=== PATIENT | female | born 1940 | race Caucasian/White ===

== ENCOUNTER 2023-11-24 07:49 | Emergency (ER) | payer OTHER, SELFPAY ==
[2023-11-24] VITALS (12 sets, daily range): BP systolic 126–203; BP diastolic 59–87; PULSE 58–72; RESP 18; TEMP 37.2; O2SAT 89–98; BMI 38.5
--- NOTE | 2023-11-24 08:04 | DI.RAD.S_ITS ---
PROCEDURE: XR CHEST 1V INDICATIONS: chest pain TECHNIQUE: One view of the chest was acquired. COMPARISON: [facility], , CHEST 2 VIEW, 06/07/2013, 10:07. FINDINGS: Surgical changes and devices: None. Lungs and pleura: Very minimal left basilar opacity. No pleural effusions or pneumothorax. Mediastinum: Heart is enlarged. Retrocardiac opacity is present suggestive of hiatal hernia and is unchanged. Bones and chest wall: No suspicious bony lesions. Overlying soft tissues appear unremarkable. IMPRESSION: Minimal left basilar opacity which may represent small effusion. Dictated by: Lesly Samson M.D. on 11/24/2023 at 8:45 Approved by: Lesly Samson M.D. on 11/24/2023 at 8:46
[2023-11-24 08:15] LABS: HEMOLYSIS < 15 (0-50)
[2023-11-24 08:19] LABS: Add Manual Diff / Slide Review NO; Basophils Absolute Auto 100 /uL (0-100); Basophils Percent Auto 1.2 % (0-2); Eosinophils Absolute Auto 100 /uL (0-450); Eosinophils Percent Auto 1.8 % (2-4); Hematocrit 38.9 % (36-46); Lymphocytes Absolute Auto 1800 /uL (1100-4500); Lymphocytes Percent Auto 21.5 % (25-40); Mean Corpuscular HGB Conc 33.5 % (30-36); Mean Corpuscular Hemoglobin 28.5 PG (26-34); Mean Corpuscular Volume 85.3 fL (80-100); Monocytes Absolute Auto 700 /uL (0-900); Monocytes Percent Auto 8.2 % (3-14); Neutrophils Absolute Auto 5500 /uL (1500-7000); Neutrophils Percent Auto 67.3 % (50-75); Platelet Count 265 X10^3/uL (150-400); Red Blood Cell Count 4.56 X10^6/uL (4.0-5.2); Red Cell Distribution Width 14.2 % (11.6-14.8); White Blood Cell Count 8.2 X10^3/uL (4.5-11.0)
[2023-11-24 08:22] LABS: Alanine Aminotransferase 16 IU/L (<35); Albumin 4.4 g/dL (3.5-5.0); Alkaline Phosphatase 59 U/L (38-126); Aspartate Aminotransferase 20 IU/L (14-36); BUN Creatinine Ratio 20.5 (6-22); Bilirubin Total 0.6 mg/dL (0.2-1.3); Blood Urea Nitrogen 15 mg/dL (7-17); Calcium 9.6 mg/dL (8.4-10.2); Carbon Dioxide 32 mmol/L (22-32); Chloride 99 mmol/L (98-107); Creatine Kinase 69 U/L (30-135); Estimated Glomerular Filt Rate > 60 mL/min (>60); Globulin 4.2 g/dL (1.7-4.1); Glucose 120 mg/dL (80-110); Lipase 46 U/L (23-300); Magnesium 1.9 mg/dL (1.6-2.3); Sodium 135 mmol/L (137-145); Total Protein 8.6 g/dL (6.3-8.2)
[2023-11-24 08:25] LABS: PTT Partial Thromboplastin Tim 34 SECONDS (25.1-36.5)
[2023-11-24 08:38] LABS: Troponin I < 0.012 ng/mL (0.01-0.034)
--- NOTE | 2023-11-24 09:13 | ED.GENADULT ---
HPI - General Adult General Chief complaint: Dizziness Stated complaint: kidney pain, dizziness, fever Time Seen by Provider: 11/24/23 09:09 Source: patient Mode of arrival: Family Vehicle History of Present Illness HPI narrative: 82-year-old female with history of hypertension, GERD who presents with complaint of feeling a little lightheaded starting yesterday morning. Patient states no spinning or vertigo symptoms. She has had those in the past. She states she does not feel like she is going to pass out but feels a little bit off balance. She denies headaches, she denies vision changes, she denies numbness, tingling or weakness of extremities. States she has been ambulating like she normally does. Denies any chest pain or pressure no active shortness of breath. Did not notice a little bit increased swelling in her ankles also notes she had her amlodipine increased in September. She has had some mild nausea but no vomiting, no new issues with bowel movements she does take a laxative daily. She has some chronic incontinence and noticed a little bit of flank pain and was concerned about possible kidney or urine infection. She denies any fevers but has felt chilled. Patient states she takes amlodipine, propranolol, lisinopril, hydrochlorothiazide, potassium supplement, omeprazole and [id number] allergy medication. Prior surgeries include bilateral knee surgery, big toe with pins and bladder prolapse surgery. States she has reaction to IV potassium, she states that she turned red and had swelling of her face and neck. No tobacco, alcohol or recreational drugs. She follows with a nurse practitioner on [facility]. Related Data Previous Rx's Medication Instructions Recorded cephalexin 500 mg capsule 500 mg PO BID 5 days #10 caps 11/24/23 Allergies Allergy/AdvReac Type Severity Reaction Status Date / Time potassium Allergy Redness of Verified 11/24/23 08:19 Skin Review of Systems Review of Systems ROS Unobtainable: All systems reviewed & are unremarkable except as noted in HPI and below Patient History Social History Smoking Status: Never smoker Smoking Status: Never smoker alcohol intake frequency: 0-2 drinks per day Substance Use Type: does not use Exam Narrative Exam Narrative: GEN: well nourished, well appearing female, alert and oriented x 3, patient appears to be in mild distress. HEENT: Atraumatic, pupils are equal round reactive to light, extraocular movements are intact, nares are clear, there is no conjunctival pallor. Throat is clear without any exudates, erythema, tonsillar enlargement or uvular deviation HEART: Regular rate and rhythm without murmur, clicks, rubs. pulses are equal in upper and lower extremities LUNGS:Lungs clear to auscultation, no wheezes, rales, crackles, chest moves symmetrically, patient has bilateral ankle edema. ABD:bowel sounds normal, soft, non-tender, no guarding, rebound, rigidity, no masses noted, no hepatosplenomegaly :No CVA tenderness MSCL: Non-tender, no muscle atrophy, muscles strength 5/5 upper and lower extremities, full range of motion, normal gait patient ambulated to and from the bathroom without any issue. NEURO:CN 2-12 intact, sensation normal Initial Vital Signs Initial Vital Signs: Vital Signs Pulse Oximetry 96 11/24/23 07:55 Course Orders Ordered: Discontinued Medications Aspirin (Aspirin 81 Mg Chew Tab) 324 mg PO NOW ONE Stop: 11/24/23 08:05 Last Admin: 11/24/23 08:18 Dose: Not Given Documented By: HUSSAIN Vital Signs Vital signs: Vital Signs - 8 hr 11/24/23 07:55 11/24/23 07:56 11/24/23 07:56 Temperature Pulse Rate 72 Respiratory Rate Blood Pressure 195/87 H Pulse Oximetry 96 97 Oxygen Delivery Method 11/24/23 08:00 11/24/23 08:00 11/24/23 08:00 Temperature 98.9 F Pulse Rate 71 69 Respiratory Rate 18 Blood Pressure 195/87 H 198/65 H Pulse Oximetry 97 98 Oxygen Delivery Method Room Air 11/24/23 08:30 11/24/23 08:30 11/24/23 09:00 Temperature Pulse Rate 60 Respiratory Rate Blood Pressure 166/77 H 149/67 H Pulse Oximetry 95 Oxygen Delivery Method 11/24/23 09:00 11/24/23 09:18 11/24/23 09:20 Temperature Pulse Rate 58 L 69 Respiratory Rate Blood Pressure 203/84 H Pulse Oximetry 96 89 L Oxygen Delivery Method 11/24/23 09:20 11/24/23 09:21 11/24/23 09:21 Temperature Pulse Rate 62 62 Respiratory Rate Blood Pressure 171/72 H Pulse Oximetry 98 98 Oxygen Delivery Method Medical Decision Making Lab Data 11/24/23 08:05 11/24/23 08:05 Labs: Lab Results 11/24/23 11/24/23 Range/Units 08:05 09:20 WBC 8.2 (4.5-11.0) X10^3/uL RBC 4.56 (4.0-5.2) X10^6/uL Hgb 13.0 (12.0-16.0) g/dL Hct 38.9 (36-46) % MCV 85.3 (80-100) fL MCH 28.5 (26-34) PG MCHC 33.5 (30-36) % RDW 14.2 (11.6-14.8) % Plt Count 265 (150-400) X10^3/uL Neut % (Auto) 67.3 (50-75) % Lymph % (Auto) 21.5 L (25-40) % [place] % (Auto) 8.2 (3-14) % Eos % (Auto) 1.8 L (2-4) % Baso % (Auto) 1.2 (0-2) % Neut # (Auto) 5500 (8839-9118) /uL Lymph # (Auto) 1800 (2921-4071) /uL [place] # (Auto) 700 (0-900) /uL Eos # (Auto) 100 (0-450) /uL Baso # (Auto) 100 (0-100) /uL PT 11.0 (9.4-12.5) SECONDS INR 1.0 (0.9-1.3) APTT 34 (25.1-36.5) SECONDS Sodium 135 L (137-145) mmol/L Potassium 4.0 (3.4-5.1) mmol/L Chloride 99 (98-107) mmol/L Carbon Dioxide 32 (22-32) mmol/L BUN 15 (7-17) mg/dL Creatinine 0.73 (0.52-1.04) mg/dL Estimated GFR > 60 (>60) mL/min BUN/Creatinine Ratio 20.5 (6-22) Glucose 120 H (80-110) mg/dL Calcium 9.6 (8.4-10.2) mg/dL Magnesium 1.9 (1.6-2.3) mg/dL Total Bilirubin 0.6 (0.2-1.3) mg/dL AST 20 (14-36) IU/L ALT 16 (<35) IU/L Alkaline Phosphatase 59 (38-126) U/L Total Creatine Kinase 69 (30-135) U/L Troponin I < 0.012 (0.01-0.034) ng/mL Total Protein 8.6 H (6.3-8.2) g/dL Albumin 4.4 (3.5-5.0) g/dL Globulin 4.2 H (1.7-4.1) g/dL Albumin/Globulin Ratio 1.0 (1.0-2.8) Lipase 46 (23-300) U/L Urine Color Yellow Urine Appearance Clear Urine pH 5.5 (4.5-8.0) Ur Specific [place] 1.010 (1.000-1.035) Urine Protein Negative (Negative) Urine Glucose (UA) Negative (Negative) g/dL Urine Ketones Negative (NEGATIVE) Urine Occult Blood Negative (Negative) Urine Nitrate Negative (Negative) Urine Bilirubin Negative (NEGATIVE) Urine Urobilinogen 0.2 (0.2) E.U./dL Ur Leukocyte Esterase 1+ H (NEGATIVE) Urine RBC None seen (0-5/HPF) Urine WBC 1-5/hpf (0-5/HPF) Ur Squamous Epith Cells 1-5 /hpf (0-5/HPF) Urine Bacteria None seen (None) Ur Culture Indicated? Specimen cultured Vol Urine Centrifuged 10ml (spun) Imaging Data Chest x-ray: Radiologist's Impression: [address] [address] XRay Report Signed Patient: Ghada Paul MR#: [id number] : 1940 Acct:[id number] Age/Sex: 82 / F Date of Service: 11/24/23 Loc: ED Accession Number: [id number] Procedure: XR chest 1V Ordering Provider: Delmy Potter D.O. PROCEDURE: XR CHEST 1V INDICATIONS: chest pain TECHNIQUE: One view of the chest was acquired. COMPARISON: [facility], CHEST 2 VIEW, 06/07/2013, 10:07. FINDINGS: Surgical changes and devices: None. Lungs and pleura: Very minimal left basilar opacity. No pleural effusions or pneumothorax. Mediastinum: Heart is enlarged. Retrocardiac opacity is present suggestive of hiatal hernia and is unchanged. Bones and chest wall: No suspicious bony lesions. Overlying soft tissues appear unremarkable. IMPRESSION: Minimal left basilar opacity which may represent small effusion. Dictated by: Lesly Samson M.D. on 11/24/2023 at 8:45 Approved by: Lesly Samson M.D. on 11/24/2023 at 8:46 ECG Data Attestation: I personally reviewed and interpreted this ECG as follows: Prior ECG tracings: available for review Interpretation: Sinus rhythm rate of 68 [place] 200 QRS of 106 QTC 418, no acute ST elevation or depression noted. Patient has prior from 06/07/2023 with nonspecific change. MDM Narrative Medical decision making narrative: 82-year-old female with slightly hypertensive but otherwise appropriate vitals. Patient describes some mild lightheadedness, nausea and chills starting yesterday. Patient also notes she has had some flank discomfort times it thought she might have a bladder infection. No acute neurologic changes or otherwise described, she is ambulating without issue. Labs show white count 8.2 hemoglobin of 13 platelets of 260 5- coags normal renal function and electrolytes, LFTs are negative, troponins negative lipase is 46. Chest x-ray shows small effusions/left basilar opacity. EKG shows no acute changes. Urine shows leukocyte esterase, 1-5 WBCs 1-5 squamous no bacteria, no RBCs. Discussed with patient she has noticed some mild urinary changes was concerned about urine or kidney infection we will go ahead and start oral antibiotic. Urine culture is pending. Discharge Plan Departure Patient Disposition: Home Clinical Impression: Acute UTI Activity Restrictions/Additional Instructions: Follow up for recheck as needed. Your urine has been sent for culture, results take 48-72 hours if there is resistance to the antibiotics you are prescribed we will contact you to change them. Take antibiotics until completed. Prescription sent to [place] pharmacy. Please return for fevers, new or worsening abdominal back or flank pain, increasing lightheadedness or passing out, new chest pain or shortness of breath, persistent vomiting, increasing swelling of extremities or other new or concerning changes. Prescriptions: New cephalexin 500 mg capsule 500 mg PO BID 5 Days Qty: 10 0RF Referrals: René Marques DO [Primary Care Provider] - Stand Alone Forms: Patient Portal/API
[2023-11-24 09:37] LABS: Appearance Urine UA CLEAR; Bilirubin Urine UA NEGATIVE (NEGATIVE); Color Urine UA YELLOW; Glucose Urine UA NEGATIVE (Negative); Ketones Urine UA NEGATIVE (NEGATIVE); Leukocyte Esterase Urine UA 1+ (NEGATIVE); Nitrite Urine UA NEGATIVE (Negative); Occult Blood Urine UA NEGATIVE (Negative); Protein Urine UA NEGATIVE (Negative); Urobilinogen Urine UA 0.2 E.U./dL (0.2)
[2023-11-24 09:44] LABS: pH Urine UA 5.5 (4.5-8.0)
[2023-11-24 09:46] LABS: Bacteria Urine None Seen; Culture Indicated Urine Specimen Cultured; RBC Urine None Seen (0-5/HPF); Squamous Epithelial Cell Urine 1-5 /HPF (0-5/HPF); Urine Volume 10mL (spun); WBC Urine 1-5/HPF (0-5/HPF)
== END 2023-11-24 10:23 | disposition home or self-care (01) ==
PROVIDERS: Emergency Provider Emergency Medicine; Family Provider Family Medicine; PCP Family Medicine
DX: N39.0 Urinary tract infection, site not specified (principal); R07.9 Chest pain, unspecified
CPT/HCPCS: 36415; 71045; 80053; 81001; 82550; 83690; 83735; 84484; 85025; 85610; 85730; 87086; 93005; 93010; 99283; 99284

== ENCOUNTER 2025-01-15 21:57 | Emergency (ER) | payer OTHER, SELFPAY ==
[2025-01-15 21:57] VITALS: BP 150/65; PULSE 67; RESP 18; TEMP 36.8; O2SAT 97; BMI 39.3
[2025-01-16] VITALS (9 sets, daily range): BP systolic 144–198; BP diastolic 55–87; PULSE 59–68; RESP 17–21; O2SAT 93–97
--- NOTE | 2025-01-16 03:09 | ED_ITS ---
HPI - Back Pain/Injury General Chief Complaint: Back Pain/Injury Stated Complaint: Back Pain Time Seen by Provider: 01/16/25 02:50 Source: patient and EMS History of Present Illness HPI Narrative: 84-year-old woman who lives at home with history of hypertension, reflux, mobility issues, describes herself as always bent over a little bit which is why I use my walker On the she was moving some objects in her garage and felt a slight twinge in pull in her lower back, pain in her back has been increasing since that time. Severe enough at this point she called medics for transport to the emergency department. She can not take ibuprofen due to prior GI issues, Tylenol is no longer effective. She had an old Robaxin that she took that did not seem particularly helpful. She does not describe any radicular pain, no obvious trauma beyond simply moving and twisting. regarding pain medication she states that she has tolerated Vicodin without difficulty after prior knee surgeries. She is not complaining of abdominal pain, dysuria, flank pain no fevers, chest pain, cough, chills, headache. Related Data Previous Rx's Medication Instructions Recorded diazepam 2 mg tablet 2 mg PO TID PRN muscle spasm #10 01/16/25 tabs Allergies Allergy/AdvReac Type Severity Reaction Status Date / Time potassium AdvReac Redness of Verified 01/15/25 21:57 Skin Review of Systems Review of Systems Narrative: Pertinent positive and negative findings as per HPI Patient History Social History Smoking Status: Never smoker Smoking Status: Never smoker alcohol intake frequency: 0-2 drinks per day Exam Initial Vital Signs Initial Vital Signs: Vital Signs Temperature 98.3 F 01/15/25 21:57 Pulse Rate 67 01/15/25 21:57 Respiratory Rate 18 01/15/25 21:57 Blood Pressure 150/65 H 01/15/25 21:57 Pulse Oximetry 97 01/15/25 21:57 Oxygen Delivery Method Room Air 01/15/25 21:57 General: Healthy appearing, in no acute distress While lying flat and after given 50 mcg of fentanyl by medics. Able to give a complete and coherent history. Well-nourished well-developed HEENT: Moist mucous membranes, normal sclera with reactive pupils, Respiratory: Full and symmetrical air movement Cardiac: Regular rate and rhythm Abdomen: Soft, nontender, no rebound or guarding, no flank pain back: No midline point tenderness, no rashes, no significant muscle spasm. Area of pain seems to be in a bandlike area around L1 and L2 Skin: Warm and dry, no rashes Neurologic: Grossly neurologically intact with no obvious asymmetries or abnormalities Extremities: No trauma, well perfused, no edema Psych: Cooperative, appropriate insight and affect Course Orders Ordered: ED Orders 01/16/25 03:23 XR lumbar spine 2-3V Stat Discontinued Medications Hydrocodone Bitart/Acetaminophen (Hydrocodone/Acet 5/325 Tablet) 1 tab PO NOW ONE Stop: 01/16/25 03:24 Last Admin: 01/16/25 03:33 Dose: 1 tab Documented By: RYLAN Diazepam (Diazepam 2 Mg Tablet) 2 mg PO NOW ONE Stop: 01/16/25 05:12 Vital Signs Vital signs: Vital Signs - 8 hr 01/15/25 21:57 01/16/25 02:47 01/16/25 02:48 Temperature 98.3 F Pulse Rate 67 68 68 Respiratory Rate 18 Blood Pressure 150/65 H Pulse Oximetry 97 94 96 Oxygen Delivery Method Room Air 01/16/25 02:48 01/16/25 03:00 01/16/25 03:00 Temperature Pulse Rate 61 Respiratory Rate 18 Blood Pressure 184/84 H 144/55 H Pulse Oximetry 95 Oxygen Delivery Method 01/16/25 03:50 01/16/25 03:51 01/16/25 03:51 Temperature Pulse Rate 67 66 Respiratory Rate Blood Pressure 198/87 H Pulse Oximetry 97 96 Oxygen Delivery Method 01/16/25 04:00 01/16/25 04:00 01/16/25 04:30 Temperature Pulse Rate 63 60 Respiratory Rate 17 Blood Pressure 171/73 H Pulse Oximetry 94 93 Oxygen Delivery Method Room Air 01/16/25 04:30 Temperature Pulse Rate Respiratory Rate Blood Pressure 182/78 H Pulse Oximetry Oxygen Delivery Method MDM - Back Pain/Injury MDM Narrative Medical decision making narrative: 84-year-old woman complains of worsening back pain since a bending and twisting episode approximately 4 days ago. Tylenol and muscle relaxants not been effective pain is getting worse. She is not describing any radicular symptoms, no abdominal pain no bowel or bladder changes, no skin changes. Concern for spontaneous compression fracture is entertained. She does not have specific risk factors to suggest epidural abscess or hematoma. X-rays are ordered to rul e out spontaneous compression fractures we discussed pain medication versus medication for muscle spasm. She has not found the Robaxin she is currently taking his particularly effective. The Vicod in she was given in the emergency department has brought her pain down to a 2-3. She is still believe she would prefer to have a muscle relaxant rather than narcotic available at home. We discussed options and chose 2 mg of diazepam. She is given a single dose here in the emergency department take with her to take around 8:00 p.m. this morning and a prescription will be transmitted to her pharmacy in [place]. Encouraged her to be up and gently moving, ice, heat, Tylenol we will all be appropriate. At this point there was no indication for lab work, additional imaging or hospitalization and she is safe for discharge Discharge Plan Departure Patient Disposition: Home Clinical Impression: Strain of lumbar region Qualifiers: Encounter type: initial encounter Qualified Code(s): S39.012A - Strain of muscle, fascia and tendon of lower back, initial encounter Instructions: DI for Back Strain or Sprain Activity Restrictions/Additional Instructions: thank you for coming in tonight, I am sorry that you are suffering with this back pain. With your description, most likely explanation is a muscle strain with muscle spasm. The x-rays of your lumbar spine do not suggest that you have compression fracture that might be causing your pain using Tylenol can help with pain. I will give you a small prescription of diazepam. 5 mg as a standard size and I am giving you the 2 mg size so you do not need to cut them in half. One of these every 8 hours can be helpful with treating muscle spasm. It may make you a bit sleepy. this prescription was electronically transmitted to [facility] in [place] In looking at your x-rays you have quite a bit of air through your entire colon making sure that you continue to have regular bowel movements is going to help so that abdominal pain does not make your back pain worse If you find that you are getting worse or develop any new symptoms, please feel free to return to the emergency department for further evaluation. Prescriptions: New diazepam 2 mg tablet 2 mg PO TID PRN (Reason: muscle spasm) Qty: 10 0RF Referrals: Scheidt,Judye, DO [Primary Care Provider] - Stand Alone Forms: Patient Portal/API/Survey
--- NOTE | 2025-01-16 03:23 | DI.RAD.S_ITS ---
PROCEDURE: XR LUMBAR SPINE 2-3V INDICATIONS: Low back pain, nontrauma, inability to ambulate TECHNIQUE: 3 views of the lumbar spine were acquired. COMPARISON: None. FINDINGS: Bones: 5 [id number] vertebrae are present. There is minimal anterolisthesis at the L3-L4 level. No vertebral body compression fractures. No suspicious bony lesions. There is at least moderate disc space narrowing seen at L2-L3, L3-L4, and L5-S1. There is a degree of vertebral body fusion seen at L4-L5. At the L4-L5 level, posteriorly projecting endplate osteophytes are seen. Lower lumbar spine facet arthropathy is seen. Multiple levels of significant bridging anterior osteophytes are seen. Endplate irregularity and sclerosis can be seen, which are worst at L2-L3. Soft tissues: Overlying bowel gas pattern is normal. No suspicious soft tissue calcifications. Atherosclerotic calcification is noted. Presacral clips are seen. IMPRESSION: Multiple levels of significant degenerative change can be seen by plain film. If it would be helpful for clinical management decision making, please consider a dedicated, scheduled lumbar spine MRI for further evaluation (assuming that there is no contraindication). Note: Mild anterolisthesis is seen at L3-L4, not at L4-L5, as described on the preliminary report. Dictated by: Aidan Robles M.D. on 01/16/2025 at 6:23 Approved by: Aidan Robles M.D. on 01/16/2025 at 6:29
--- NOTE | 2025-01-16 03:31 | PC.NURSE ---
Pt to imaging via ED stretcher with video technician
[2025-01-16] MEDS: HYDROCODONE/ACET 5/325 TABLET 1 TAB PO (03:33)
--- NOTE | 2025-01-16 06:08 | PC.NURSE ---
Pt able to ambulate with walker to restroom. Pt states she uses a cane at baseline.
[2025-01-16] MEDS: diazePAM 2 MG TABLET PO (06:20)
== END 2025-01-16 06:29 | disposition home or self-care (01) ==
PROVIDERS: Emergency Provider Emergency Medicine; Family Provider Family Medicine; PCP Family Medicine
DX: S39.012A Strain of muscle, fascia and tendon of lower back, initial encounter (principal); X50.1XXA Overexertion from prolonged static or awkward postures, initial encounter
CPT/HCPCS: 72100; 99283